=== PATIENT | female | born 1955 | race Caucasian/White ===

== ENCOUNTER → 2017-02-27 | Outpatient (CLI) | payer BC, OTHER | LOC: FIMAGING 12:49 | PROVIDERS: ATTEND Obstetrics & Gynecology | DX: Z12.31 Encounter for screening mammogram for malignant neoplasm of breast (principal) | CPT/HCPCS: G0202 ==

== ENCOUNTER 2017-06-26 20:27 | Emergency (ER) | payer OTHER ==
--- NOTE | 2017-06-26 20:46 | CPEKG ---
Heart Rate: 66 RR Interval: 909 P-R Interval: 240 QRSD Interval: 86 QT Interval: 424 QTC Interval: 445 P [place]: 55 QRS [place]: 25 T Wave [place]: 65 EKG Severity - ABNORMAL ECG - EKG Impression: SINUS RHYTHM EKG Impression: FIRST DEGREE AV BLOCK EKG Impression: PROBABLE LEFT ATRIAL ABNORMALITY EKG Impression: BORDERLINE T ABNORMALITIES, ANT-LAT LEADS EKG Impression: Suggestive of U waves. Electronically Signed By: Agustín Cintron 27-Jun-2017 00:55:44
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
[2017-06-26] MEDS ORDERED: NS 1,000 ML IV ONE ×2 (21:05→23:14)
[2017-06-26 21:11] LABS: PLATELET COUNT 229 10^3/uL (150-400)
[2017-06-26] MEDS ORDERED: POTASSIUM Cl (KCl) 40 MEQ in NS 1,000 ML IV SCH (21:45)
[2017-06-26] MEDS ORDERED: POTASSIUM Cl (KCl) 100 ML IV ONE (21:47)
[2017-06-26] MEDS ORDERED: IOPAMIDOL (ISOVUE-300) 100 ML BTL ONE ×2 (22:04→22:38)
[2017-06-27 00:16] VITALS: TEMP 98.4
[2017-06-27 02:07] VITALS: BP 130/75; PULSE 76; RESP 17; O2SAT 93
== END 2017-06-27 02:10 | disposition home or self-care (01) ==
LOC: CED 20:27
DX: K59.00 Constipation, unspecified (principal); E87.1 Hypo-osmolality and hyponatremia; K81.9 Cholecystitis, unspecified; E86.9 Volume depletion, unspecified; Z79.01 Long term (current) use of anticoagulants; Z85.118 Personal history of other malignant neoplasm of bronchus and lung
CPT/HCPCS: 71020-PO; 74177-PO; 80048-PO; 80076-PO; 81003-PO; 81015-PO; 83605-PO; 83690-PO; 83735-PO; 84484-PO; 85025-PO; 96365; Q9967